=== PATIENT | female | born 1975 | race Caucasian/White ===

== ENCOUNTER 2016-04-29 21:25 | Emergency (ER) | payer OTHER ==
[2016-04-29 21:33] VITALS: BP 122/80; PULSE 102; TEMP 98.7; BMI 33.3
[2016-04-29 22:44] LABS: BASOPHIL 0.4 % (0-2.0); MCH 29.6 pg (25.7-33.7); MCHC 32.9 g/dl (32.0-36.0); MEAN PLT VOLUME 8.6 fl (7.5-11.1); NEUTROPHILS 78.1 % (42.8-82.8); PLATELET COUNT 269 K/MM3 (134-434); RDW 13.3 % (11.6-15.6); WHITE BLOOD COUNT 8.2 K/mm3 (4.0-10.0)
[2016-04-29 23:15] LABS: ALBUMIN 3.3 g/dl (3.4-5.0); ALK PHOS 79 U/L (45-117); ANION GAP 8 (8-16); BILIRUBIN,TOTAL 0.6 mg/dL (0.2-1.0); CALCIUM 8.1 mg/dL (8.5-10.1); CO2 25 mmol/L (21-32); CREATININE 0.6 mg/dL (0.55-1.02); GLUCOSE,RANDOM 111 mg/dL (74-106); SGOT/AST 11 U/L (15-37); SGPT/ALT 17 U/L (12-78); TOT PROT 7.1 g/dl (6.4-8.2)
[2016-04-30] MEDS ORDERED: SODIUM CHLORIDE 1,000 ML IV STA (00:30)
[2016-04-30] MEDS ORDERED: ONDANSETRON 4 MG/2 ML VIAL IVPUSH ONE (00:31)
[2016-04-30] MEDS ORDERED: ONDANSETRON 4 MG/2 ML VIAL ONE (00:35)
--- NOTE | 2016-04-30 00:41 | PDOC ---
History of Present Illness - History of Present Illness Initial Comments: 04/30/16 00:44 Patient is a 40 year old female with no significant medical hx who is presenting to the ED with one day of abdominal cramping, nausea, and chills. Patient is on oral contraceptives which give her her menses every 90 days; she began her cycle three days ago with some mild abdominal cramping. Today she has had extreme waves of nausea with worsening abdominal cramping, body aches and shaking chills. The patient has not vomited or had any episodes of diarrhea. Denies past abdominal surgeries, past medical hx, or chronic medications. Allergies: zithromax <Keke Garcia - Last Filed: 04/30/16 00:44> <Alivia Negro - Last Filed: 04/30/16 01:58> - General Chief Complaint: Pain, Acute Stated Complaint: ABD PAIN/FEVER Time Seen by Provider: 04/29/16 21:42 Past History <Keke Garcia - Last Filed: 04/30/16 00:44> - Past Medical History Asthma: Yes - Psycho/Social/Smoking Cessation Hx Suicidal Ideation: No Smoking History: Never smoked <Alivia Negro - Last Filed: 04/30/16 01:58> - Past Medical History Allergies/Adverse Reactions: Allergies Allergy/AdvReac Type Severity Reaction Status Date / Time azithromycin Allergy Verified 04/29/16 21:29 Home Medications: Ambulatory Orders Albuterol Sulfate Inhaler - [Ventolin Hfa Inhaler -] 1 - 2 inh PO Q4H PRN Review of Systems - Review of Systems Comments:: 04/30/16 00:49 CONSTITUTIONAL: Present: chills, body aches Absent: fever, diaphoresis, generalized weakness, malaise, loss of appetite HEENT: Absent: rhinorrhea, nasal congestion, throat pain, throat swelling, difficulty swallowing, mouth swelling, ear pain, eye pain, visual changes CARDIOVASCULAR: Absent: chest pain, syncope, palpitations, irregular heart rate, lightheadedness , peripheral edema RESPIRATORY: Absent: cough, shortness of breath, dyspnea with exertion, orthopnea, wheezing, stridor, hemoptysis GASTROINTESTINAL: Present: nausea, abdominal cramping Absent: abdominal distension, vomiting, diarrhea, constipation, melena, hematochezia GENITOURINARY: Absent: dysuria, frequency, urgency, hesitancy, hematuria, flank pain, genital pain MUSCULOSKELETAL: Absent: myalgia, arthralgia, joint swelling SKIN: Absent: rash, itching, pallor HEMATOLOGIC/IMMUNOLOGIC: Absent: easy bleeding, easy bruising, lymphadenopathy, frequent infections ENDOCRINE: Absent: unexplained weight gain, unexplained weight loss, heat intolerance, cold intolerance NEUROLOGIC: Absent: headache, focal weakness or paresthesia, dizziness, unsteady gait, seizure, mental status changes, bladder or bowel incontinence. PSYCHIATRIC: Absent: anxiety, depression, suicidal or homicidal ideation, hallucinations <Keke Garcia - Last Filed: 04/30/16 00:44> *Physical Exam - Vital Signs Last Vital Signs Temp Pulse Resp BP Pulse Ox 98.7 F 102 H 18 122/80 98 04/29/16 21:31 04/29/16 21:31 04/29/16 21:31 04/29/16 21:31 04/29/16 21:31 - Physical Exam Comments: 04/30/16 00:51 GENERAL: Well developed, well nourished. Awake and alert. No acute distress. HEENT: Normocephalic, atraumatic. PERRLA, EOMI. No conjunctival pallor. Sclera are non- icteric. Dry mucous membranes. Oropharynx is clear. NECK: Supple. Full ROM. No JVD. Carotid pulses 2+ and symmetric, without bruits. No thyromegaly. No lymphadenopathy. CARDIOVASCULAR: Regular rate and rhythm. No murmurs, rubs, or gallops. Distal pulses are 2+ and symmetric. PULMONARY: No evidence of respiratory distress. Lungs clear to auscultation bilaterally. No wheezing, rales or rhonchi. ABDOMINAL: Soft. Non-tender. Non-distended. No rebound or guarding. No organomegaly. Normoactive bowel sounds. MUSCULOSKELETAL: Normal range of motion at all joints. No bony deformities or tenderness. No CVA tenderness. EXTREMITIES: No cyanosis. No clubbing. No edema. No calf tenderness. SKIN: Warm and dry. Normal capillary refill. No rashes. No jaundice. NEUROLOGICAL: Alert, awake, appropriate. Cranial nerves 2-12 intact. Normal speech. Gait is normal without ataxia. PSYCHIATRIC: Cooperative. Good eye contact. Appropriate mood and affect. <Keke Garcia - Last Filed: 04/30/16 00:44> - Vital Signs Last Vital Signs Temp Pulse Resp BP Pulse Ox 98.7 F 102 H 18 122/80 98 04/29/16 21:31 04/29/16 21:31 04/29/16 21:31 04/29/16 21:31 04/29/16 21:31 <Alivia Negro - Last Filed: 04/30/16 01:58> ED Treatment Course - LABORATORY CBC & Chemistry Diagram: 04/29/16 22:30 04/29/16 22:30 - ADDITIONAL ORDERS Additional order review: Laboratory Results 04/29/16 04/29/16 04/29/16 22:30 22:30 22:30 Sodium 136 Potassium 3.9 Chloride 103 Carbon Dioxide 25 Anion Gap 8 BUN 12 Creatinine 0.6 Creat Clearance w eGFR > 60 Random Glucose 111 H Calcium 8.1 L Total Bilirubin 0.6 AST 11 L ALT 17 Alkaline Phosphatase 79 Total Protein 7.1 Albumin 3.3 L Serum , Qual Negative Blood Type A POSITIVE Antibody Screen Negative 04/29/16 22:30 RBC 4.57 MCV 90.0 MCHC 32.9 RDW 13.3 MPV 8.6 Neutrophils % 78.1 Lymphocytes % 16.0 Monocytes % 3.5 L Eosinophils % 2.0 Basophils % 0.4 <Keke Garcia - Last Filed: 04/30/16 00:44> - LABORATORY CBC & Chemistry Diagram: 04/29/16 22:30 04/29/16 22:30 - ADDITIONAL ORDERS Additional order review: Laboratory Results 04/29/16 04/29/16 04/29/16 22:30 22:30 22:30 Sodium 136 Potassium 3.9 Chloride 103 Carbon Dioxide 25 Anion Gap 8 BUN 12 Creatinine 0.6 Creat Clearance w eGFR > 60 Random Glucose 111 H Calcium 8.1 L Total Bilirubin 0.6 AST 11 L ALT 17 Alkaline Phosphatase 79 Total Protein 7.1 Albumin 3.3 L Serum , Qual Negative Blood Type A POSITIVE Antibody Screen Negative 04/29/16 22:30 RBC 4.57 MCV 90.0 MCHC 32.9 RDW 13.3 MPV 8.6 Neutrophils % 78.1 Lymphocytes % 16.0 Monocytes % 3.5 L Eosinophils % 2.0 Basophils % 0.4 <Alivia Negro - Last Filed: 04/30/16 01:58> *DC/Admit/Observation/Transfer - Attestations Scribe Attestion: 04/30/16 00:52 Documentation prepared by Keke Garcia, acting as medical billing supervisor for Alivia Negro MD. <Keke Garcia - Last Filed: 04/30/16 00:44> <Alivia Negro - Last Filed: 04/30/16 01:58> Diagnosis at time of Disposition: Body aches, Chills Nausea & vomiting Qualifiers: Vomiting type: unspecified Vomiting Intractability: non-intractable Qualified Code(s): R11.2 - Nausea with vomiting, unspecified - Discharge Dispostion Disposition: HOME Condition at time of disposition: Stable - Patient Instructions Printed Discharge Instructions: DI for Viral Syndrome, DI for Nausea -- Adult Additional Instructions: -please take zofran for your nausea. Please rock picker your prescription at your pharmacy -try to stay hydrated and drink water -please return in the next 2 days if you develop abdominal tenderness/pain or persistent vomiting - Post Discharge Activity Work/School Note: Back to Work
== END 2016-04-30 02:05 | disposition home or self-care (01) ==
LOC: JER 21:25
PROC: 3E033GC Introduction of Other Therapeutic Substance into Peripheral Vein, Percutaneous Approach (ICD-10-PCS; principal; 2016-04-29)
DX: B34.9 Viral infection, unspecified (principal)
CPT/HCPCS: 36415; 80053; 84703; 85025; 86850; 86900; 86901; 99282-25

== ENCOUNTER 2019-07-23 10:27 | Emergency (ER) | payer BC, OTHER ==
[2019-07-23 10:33] VITALS: BMI 35.4
[2019-07-23] MEDS ORDERED: ACETAMINOPHEN 1000 MG/100 ML VIAL (NON FORMULARY) IVPB ONE (10:42)
[2019-07-23] MEDS ORDERED: SODIUM CHLORIDE 1,000 ML IV STA (10:42)
[2019-07-23] MEDS ORDERED: ACETAMINOPHEN INJECTION 100 ML IVPB ONE (11:03)
[2019-07-23 11:13] LABS: BASO % 0.7 % (0-2.0); EOS % 1.6 % (0-4.5); HEMATOCRIT 39.1 % (32.4-45.2); HEMOGLOBIN 13.3 GM/dL (10.7-15.3); LYMPH % 29.8 % (8-40); MCH 30.7 pg (25.7-33.7); MEAN CELL VOLUME 90.3 fl (80-96); MEAN PLT VOLUME 8.7 fl (7.5-11.1); NEUT % 62.9 % (42.8-82.8); PLATELET COUNT 313 K/MM3 (134-434); RBC 4.33 M/mm3 (3.60-5.2); RDW 13.7 % (11.6-15.6); WHITE BLOOD COUNT 7.4 K/mm3 (4.0-10.0)
--- NOTE | 2019-07-23 11:16 | PDOC ---
History of Present Illness - General Chief Complaint: Pain, Acute Stated Complaint: LOWER BACK PAIN/BLOOD IN URINE Time Seen by Provider: 07/23/19 10:40 - History of Present Illness Initial Comments: 07/23/19 11:11 43 yo F PMH asthma, presenting with L flank pain. Notes that she had mild intermittent back pain for about a week, but has become 10/10 in the past day. Went to urgent care this morning, where they checked a urine and told her that she had blood and to go the ER. Never had similar symptoms in the past. Endorses chills and L flank pain, without N/V or abdominal pain. Further denies CP, SOB, HARRIS, urinary changes. Past History - Past Medical History Allergies/Adverse Reactions: Allergies Allergy/AdvReac Type Severity Reaction Status Date / Time azithromycin Allergy Verified 07/23/19 10:33 Home Medications: Ambulatory Orders Albuterol Sulfate Inhaler - [Ventolin Hfa Inhaler -] 1 - 2 inh PO Q4H PRN 04/29/16 Asthma: Yes COPD: No - Psycho Social/Smoking Cessation Hx Smoking History: Never smoked Hx Alcohol Use: No Drug/Substance Use Hx: No Review of Systems - Review of Systems Comments:: 07/23/19 11:17 GENERAL/CONSTITUTIONAL: denies fever, chills, diaphoresis, generalized weakness, malaise, loss of appetite, weight change HEAD, EYES, EARS, NOSE AND THROAT: denies rhinorrhea, nasal congestion, throat pain, throat swelling, difficulty swallowing, mouth swelling, ear pain, eye pain, visual changes NEUROLOGIC: denies headache, focal weakness or paresthesias, dizziness, unsteady gait, seizure, mental status changes, bladder or bowel incontinence CARDIOVASCULAR: denies chest pain, syncope, palpitations, irregular heart rate, lightheadedness, peripheral edema RESPIRATORY: denies cough, shortness of breath, dyspnea with exertion, orthopnea, wheezing, stridor, hemoptysis GASTROINTESTINAL: endorses L flank pain. Denies abdominal pain, abdominal distension, nausea, vomiting, diarrhea, constipation, melena, hematochezia GENITOURINARY: denies dysuria, frequency, urgency, hesitancy, hematuria, flank pain, genital pain MUSCULOSKELETAL: denies myalgia, arthralgia, joint swelling, back pain, neck pain SKIN: denies rash, itching, pallor HEMATOLOGIC/IMMUNOLOGIC: denies easy bleeding, easy bruising, lymphadenopathy, frequent infections ENDOCRINE: denies unexplained weight gain, unexplained weight loss, heat intolerance, cold intolerance PSYCHIATRIC: denies anxiety, depression, suicidal or homicidal ideation, hallucinations *Physical Exam - Vital Signs Last Vital Signs Temp Pulse Resp BP Pulse Ox 98.1 F 97 H 16 145/94 98 07/23/19 10:29 07/23/19 10:29 07/23/19 10:29 07/23/19 10:07/23/19 10:29 - Physical Exam 07/23/19 11:13 Gen: well-developed, well-nourished, appears uncomfortable Neuro: AAOX4, CN II-XII grossly intact HEENT: atraumatic, normocephalic Neck: trachea midline, supple CV: regular rate, regular rhythm, no murmurs, rubs, or gallops Pulm: CTA b/l, no wheezing Abd: soft, non-distended, L lumbar paraspinal tenderness MSK: full ROM, intact pulses Extr: no edema, no deformities Skin: warm, dry ED Treatment Course - LABORATORY CBC & Chemistry Diagram: 07/23/19 10:52 07/23/19 10:52 Medical Decision Making - Medical Decision Making 07/23/19 11:21 R/o kidney stone. - UA/UC/urine preg - CBC, CMP - CT abd/pelvis non-con 07/23/19 12:29 CT abd/pelvis: There is no evidence of hydroureteronephrosis, renal or ureteral stone, bilaterally. Partially distended urinary bladder without wall thickening or intraluminal layering stones. Partially distended gallbladder without gross intraluminal stones. A few subcentimeter mesenteric lymph nodes in the right lower quadrant as well as questionable tiny mesenteric lymph nodes in the mid abdomen which are nonspecific. Cannot rule out mesenteric adenitis. Normal- appearing appendix without evidence of acute appendicitis. Will reassess patient, possibly passed stone. 07/23/19 12:37 Patient continues to have pain, now states that it improves when she rotates her back. Possible musculoskeletal etiology. Will give lidocaine patch, Robaxin, reassess. 07/23/19 14:20 Patient reports that pain is still present, but understands that her scan did not show any acute findings. Will dc for further outpatient management, referral to orthopedics. Discharge - Discharge Information Problems reviewed: Yes Clinical Impression/Diagnosis: Left low back pain Condition: Stable Disposition: HOME - Admission No - Follow up/Referral Referrals: Alex Pierre [Primary Care Provider] - Bertin Perales DO [Staff Physician] - - Patient Discharge Instructions Patient Printed Discharge Instructions: DI for Low Back Pain Additional Instructions: You were seen with left sided back pain. Your labs and imaging did not show any acute abnormalities. Please alternate taking ibuprofen and acetaminophen as needed for pain. Follow up with your primary care doctor within one week. We have given you a referral to orthopedic surgery; please call to make an appointment if you continue to have symptoms. Return to the ER if you develop new or worsening symptoms. - Post Discharge Activity
[2019-07-23 11:41] LABS: ALBUMIN 3.4 g/dl (3.4-5.0); BILIRUBIN,TOTAL 0.3 mg/dL (0.2-1); BLOOD UREA NITROGEN 15.2 mg/dL (7-18); CALCIUM 9.2 mg/dL (8.5-10.1); CREATININE 0.6 mg/dL (0.55-1.3); POTASSIUM 4.5 mmol/L (3.5-5.1); TOT PROT 7.6 g/dl (6.4-8.2)
[2019-07-23 11:43] LABS: EPI CELLS 3 /uL (0-25.1); HCG,QUALITATIVE URINE Negative; HYALINE CASTS 0 /uL (0-3.1); PH,URINE 6.5 (5.0-8.0); URINE APPEARANCE CLEAR; URINE BACTERIA 195 /uL (0-1359); URINE BILIRUBIN NEGATIVE (NEGATIVE); URINE COLOR YELLOW; URINE GLUCOSE (UA) NEGATIVE (NEGATIVE); URINE KETONE NEGATIVE (NEGATIVE); URINE LEUK ESTERASE NEGATIVE (NEGATIVE); URINE NITRITE NEGATIVE (NEGATIVE); URINE PROTEIN NEGATIVE (NEGATIVE); URINE RBC 35 /uL (0-23.9); URINE UROBILINOGEN 0.2 mg/dL (0.2-1.0); URINE WBC 6 /uL (0-25.8)
[2019-07-23] MEDS ORDERED: KETOROLAC TROMETHAMINE 30 MG/1 ML VIAL IVPUSH ONE (11:47)
[2019-07-23] MEDS ORDERED: KETOROLAC TROMETHAMINE 30 MG/1 ML VIAL ONE (11:52)
--- NOTE | 2019-07-23 11:58 | PDOC ---
Documentation entered by Stephania Hurst SCRIBE, acting as scribe for Radha Cerda DO. Radha Cerda DO: This documentation has been prepared by the Aris parson Brenda, SCRIBE, under my direction and personally reviewed by me in its entirety. I confirm that the documentation accurately reflects all work, treatment, procedures, and medical decision making performed by me. Attending Attestation - Resident Resident Name: RecinosFadichristopher - ED Attending Attestation I have performed the following: I have examined & evaluated the patient, The case was reviewed & discussed with the resident, I agree w/resident's findings & plan, Exceptions are as noted - HPI HPI: 07/23/19 10:49 The patient is a year old female, with a significant PMH of who presents to the emergency department sent from urgent care for evaluation of left lower back pain that is reproducible an dhematuria. Patient rpeorts being 2 weeks away from menstrual cycle. The patient denies any similar episodes in the past. Denies back trauma. Denies chest pain, shortness of breath, headache and dizziness. Denies fever, chills, nausea, vomiting, diarrhea and constipation. Denies dysuria, frequency, urgency. Allergies: Azithromycin Social history: No reported hx of tobacco use, alcohol use or illicit drug use. - Physicial Exam PE: 07/23/19 10:49 GENERAL: Awake, alert, and fully oriented, in no acute distress HEAD: No signs of trauma EYES: EOMI, sclera anicteric, conjunctiva clear ENT:Moist mucosa NECK: Normal ROM, supple, no lymphadenopathy, JVD, or masses LUNGS: Breath sounds equal, clear to auscultation bilaterally. No wheezes, and no crackles HEART: Regular rate and rhythm, normal S1 and S2, no murmurs, rubs or gallops ABDOMEN: Soft, nontender, normoactive bowel sounds. No guarding, no rebound. No masses BACK: (+) Left lower back tenderness. NO CVA. EXTREMITIES: Normal range of motion, no edema. No clubbing or cyanosis. No cords, erythema, or tenderness NEUROLOGICAL: Cranial nerves II through XII grossly intact. Normal speech, normal gait SKIN: Warm, Dry, normal turgor, no rashes or lesions noted. 07/23/19 11:58 - Medical Decision Making 07/23/19 11:56 a/p: 43yo female with a week of L low back pain, seen at urgent care, performed UA which showed blood, sent to the ER for further eval -pt denies trauma -pt uncomfortable, cannot sit or stand comofortably, colicky pain -feels chills, but no fevers -denies dysuria -no vaginal complaints -no n/v/d -no cough, sob -no prior hx of kidney stones -concern for renal colic given flank pain, back pain and hematuria -menstrual cycle is due in 2 weeks -no abd ttp -will send labs, ct abd/pelvis - stone study -will monitor and reassess -toradol for pain 07/23/19 12:28 mesenteric adenitis, no stones no acute findings 07/23/19 13:22 suspect msk cause vs passed stone given blood in urine will give robaxin and lidoderm patch 07/23/19 13:24 degenerative changes L5-s1 07/23/19 14:19 pt states improved, requesting to go home has been ambulatory in the ER pt stable for dc to home Discharge - Discharge Information Problems reviewed: Yes Clinical Impression/Diagnosis: Left low back pain Condition: Stable Disposition: HOME - Admission No - Follow up/Referral Referrals: Bertin Perales DO [Staff Physician] - Alex Pierre [Primary Care Provider] - - Patient Discharge Instructions Patient Printed Discharge Instructions: DI for Low Back Pain Additional Instructions: You were seen with left sided back pain. Your labs and imaging did not show any acute abnormalities. Please alternate taking ibuprofen and acetaminophen as needed for pain. Follow up with your primary care doctor within one week. We have given you a referral to orthopedic surgery; please call to make an appointment if you continue to have symptoms. Return to the ER if you develop new or worsening symptoms. - Post Discharge Activity
[2019-07-23] MEDS ORDERED: LIDOCAINE 5% TOPICAL PATCH TP ONE (12:38)
[2019-07-23] MEDS ORDERED: METHOCARBAMOL 500 MG TABLET PO ONE (13:13)
[2019-07-23] MEDS ORDERED: METHOCARBAMOL 500 MG TABLET ONE (13:25)
[2019-07-23] MEDS ORDERED: LIDOCAINE 5% TOPICAL PATCH ONE (13:46)
[2019-07-23 14:37] VITALS: BP 126/78; PULSE 88; TEMP 98.5
[2019-07-23] MEDS ORDERED: LIDOCAINE PATCH REMOVAL MC SCH (22:00)
== END 2019-07-23 14:38 | disposition home or self-care (01) ==
LOC: JER 10:27
DX: M54.5 Low back pain (principal)
CPT/HCPCS: 36415; 74176-TC; 80053; 81003; 84703; 85025; 87086; 99285-25; J0131; J7030

== ENCOUNTER 2019-11-10 19:30 | Emergency (ER) | payer BC, OTHER ==
--- NOTE | 2019-11-10 19:35 | PDOC ---
Rapid Medical Evaluation Time Seen by Provider: 11/10/19 19:33 Medical Evaluation: Allergies Allergy/AdvReac Type Severity Reaction Status Date / Time azithromycin Allergy Verified 07/23/19 10:33 11/10/19 19:33 44 year old female pmhx of asthma with 5 days of diarrhea without blood or vomiting, now complaining of dizziness. Denies fever, chills, SOB, vomiting PE: Mildly ttp over lower abdomen Plan Labs Fluids Pt to precede to Ed for further eval and treatment at the discretion of ED provider.
[2019-11-10] MEDS ORDERED: SODIUM CHLORIDE 0.9% 500 ML INFUS.BAG IV ONE (19:36)
[2019-11-10 19:37] VITALS: BP 157/82; PULSE 93; TEMP 98.6; BMI 35.0
--- NOTE | 2019-11-10 19:59 | PDOC ---
History of Present Illness - General Chief Complaint: Diarrhea Stated Complaint: SENT BY DOCTOR Time Seen by Provider: 11/10/19 19:33 - History of Present Illness Initial Comments: 11/10/19 19:56 44 y/o F w/PMH of asthma presents for evaluation of diarrhea and nausea no vomiting x4 days Past History - Medical History Allergies/Adverse Reactions: Allergies Allergy/AdvReac Type Severity Reaction Status Date / Time azithromycin Allergy Verified 07/23/19 10:33 Home Medications: Ambulatory Orders NK [No Known Home Medication] 11/10/19 Asthma: Yes COPD: No - Psycho-Social/Smoking History Smoking History: Never smoked - Substance Abuse Hx (Audit-C & DAST Scrn) How often the patient has a drink containing alcohol: Never Score: In Men: 4 or > Positive; In Women: 3 or > Positive: 0 Screen Result (Pos requires Nsg. Audit-10AR): Negative Review of Systems - Review of Systems Constitutional: Yes: Chills, Malaise, Night Sweats. No: Fever ABD/GI: Yes: Diarrhea, Nausea. No: Vomiting : No: Burning, Discharge, Frequency, Flank Pain, Urgency *Physical Exam - Vital Signs Last Vital Signs Temp Pulse Resp BP Pulse Ox 98.6 F 93 H 20 157/82 100 11/10/19 19:33 11/10/19 19:33 11/10/19 19:33 11/10/19 19:33 11/10/19 19:33 - Physical Exam General Appearance: Yes: Nourished, Appropriately Dressed. No: Apparent Distress HEENT: positive: Symmetrical Neck: positive: Supple Respiratory/Chest: positive: Lungs Clear, Normal Breath Sounds. negative: Respiratory Distress, Accessory Muscle Use, Labored Respiration, Decreased B reath Sounds, Paradoxal Breathing, Crackles, Rales, Rhonchi, Stridor, Wheezing Cardiovascular: positive: Regular Rhythm, Regular Rate Gastrointestinal/Abdominal: positive: Tender, Soft, Tenderness, Other (RLQT ). negative: Guarding, Rebound Musculoskeletal: positive: Normal Inspection Extremity: positive: Normal Inspection Integumentary: positive: Normal Color, Dry, Warm Neurologic: positive: middleware consultant II-XII NML intact, Fully Oriented, Alert, Normal Mood/Affect ED Treatment Course - LABORATORY CBC & Chemistry Diagram: 11/10/19 20:20 11/10/19 20:20 Medical Decision Making - Medical Decision Making 11/10/19 22:32 Patient signed out to main emergency room at this time Discharge - Discharge Information Problems reviewed: Yes Clinical Impression/Diagnosis: Abdominal pain - Follow up/Referral Referrals: Alex Burnette MD [Primary Care Provider] - - Patient Discharge Instructions - Post Discharge Activity
[2019-11-10 20:40] LABS: BASO % 0.3 % (0-2.0); EOS % 1.2 % (0-4.5); HEMATOCRIT 39.1 % (32.4-45.2); HEMOGLOBIN 13.1 GM/dL (10.7-15.3); MCH 30.3 pg (25.7-33.7); MCHC 33.6 g/dl (32.0-36.0); MEAN CELL VOLUME 90.4 fl (80-96); MEAN PLT VOLUME 8.3 fl (7.5-11.1); MONO % 6.8 % (3.8-10.2); NEUT % 54.7 % (42.8-82.8); PLATELET COUNT 292 K/MM3 (134-434); RBC 4.32 M/mm3 (3.60-5.2); RDW 13.6 % (11.6-15.6)
[2019-11-10 20:53] LABS: ALBUMIN 3.6 g/dl (3.4-5.0); ALK PHOS 78 U/L (45-117); ANION GAP 9 MMOL/L (8-16); BILIRUBIN,TOTAL 0.4 mg/dL (0.2-1); BLOOD UREA NITROGEN 11.8 mg/dL (7-18); CALCIUM 9.1 mg/dL (8.5-10.1); CHLORIDE 104 mmol/L (98-107); CO2 27 mmol/L (21-32); CREATININE 0.6 mg/dL (0.55-1.3); GLUCOSE,RANDOM 103 mg/dL (74-106); LIPASE 209 U/L (73-393); POTASSIUM 4.2 mmol/L (3.5-5.1); SGOT/AST 13 U/L (15-37); SGPT/ALT 21 U/L (13-61); SODIUM 140 mmol/L (136-145); TOT PROT 7.5 g/dl (6.4-8.2)
--- NOTE | 2019-11-10 22:51 | PDOC ---
*Physical Exam - Vital Signs Last Vital Signs Temp Pulse Resp BP Pulse Ox 98.6 F 93 H 20 157/82 100 11/10/19 19:33 11/10/19 19:33 11/10/19 19:33 11/10/19 19:33 11/10/19 19:33 - Physical Exam 11/10/19 22:50 Gen: AAOx 3, no acute distress, comfortable, no signs of respiratory distress CV: RRR no murmurs, gallops, or rubs. CHEST: CTA b/l no wheezing, rales or rhonchi ABD: +BS/ND. mildly TTP over lower abdomen; soft, no rebound, no guarding EXTREMITY: no cyanosis or erythema. 2+ dorsalis pedis, posterior tibial, and radial pulse. No pedal edema; no calf swelling or tenderness SKIN: no rash, warm and dry, no diaphoresis HEME: no purpura or ecchymosis NEURO: normal speech, CN II-XII intact, sensation intact, normal gait, no cerebellar deficits MS: 5/5 strength in all extremities, FROM intact in all extremities. ED Treatment Course - LABORATORY CBC & Chemistry Diagram: 11/10/19 20:20 11/10/19 20:20 - ADDITIONAL ORDERS Additional order review: Laboratory Results 11/10/19 11/10/19 20:20 20:20 Sodium 140 Potassium 4.2 Chloride 104 Carbon Dioxide 27 Anion Gap 9 BUN 11.8 Creatinine 0.6 Est GFR (CKD-EPI)AfAm 129.39 Est GFR (CKD-EPI)NonAf 111.64 Random Glucose 103 Calcium 9.1 Total Bilirubin 0.4 AST 13 L ALT 21 Alkaline Phosphatase 78 Troponin I < 0.02 Total Protein 7.5 Albumin 3.6 Lipase 209 Serum , Qual Negative 11/10/19 20:20 RBC 4.32 MCV 90.4 MCHC 33.6 RDW 13.6 MPV 8.3 Neutrophils % 54.7 Lymphocytes % 37.0 D Monocytes % 6.8 Eosinophils % 1.2 Basophils % 0.3 - Medications Given in the ED: ED Medications Discontinued Medications Generic Name Dose Route Start Last Admin Trade Name Freq PRN Reason Stop Dose Admin Sodium Chloride 2,000 ml 11/10/19 19:36 11/10/19 20:19 Normal Saline - IV 11/10/19 19:37 2,000 ml ONCE ONE Administration Medical Decision Making - Medical Decision Making 11/10/19 22:50 Pt signed out to me pending CT results, labs all WNL Pt appears well Will reassess based on results. UA suspicious for UTI vs stone 11/11/19 01:34 CT from virtual radiology shows no acute pathology including no obstructive uropathy, pt appears well is tolerating PO and is safe and stable for discharge with close PCP follow up. Even if patient does have stone not visualized on CT abdomen and pelvis it is non obstructive. Will treat for UTI Pt instructed on proper hydration and use of OTC anti-diarrheal medicine ABX sent to pts pharmacy Pt to follow up with PCP w/o fail Supportive care instructions explained and given to pt. Reasons to return emergently to ER explained and given. Importance of follow up with PMD and other specialists as indicated stressed to pt. Pt verbalized understanding of instructions. Pt to follow up with PMD in 2 days. 11/11/19 01:35 Discharge - Discharge Information Problems reviewed: Yes Clinical Impression/Diagnosis: Abdominal pain Qualifiers: Abdominal location: lower abdomen, unspecified Qualified Code(s): R10.30 - Lower abdominal pain, unspecified UTI (urinary tract infection) Qualifiers: Urinary tract infection type: site unspecified Hematuria presence: with hematur ia Qualified Code(s): N39.0 - Urinary tract infection, site not specified; R31.9 - Hematuria, unspecified Condition: Stable Disposition: HOME - Admission No - Additional Discharge Information Prescriptions: Nitrofurantoin Monohyd/M-Cryst [Macrobid -] 100 mg PO BID #10 capsule - Follow up/Referral Referrals: Alex Burnette MD [Primary Care Provider] - - Patient Discharge Instructions Patient Printed Discharge Instructions: DI for Urinary Tract Infection (UTI), DI for Diarrhea and Traveler's Diarrhea -- Adult Additional Instructions: YOU MUST FOLLOW UP WITH YOUR PCP - Post Discharge Activity Work/Back to School Note: Back to Work
[2019-11-10 23:29] LABS: EPI CELLS 11 /uL (0-25.1); HYALINE CASTS 1 /uL (0-3.1); URINE APPEARANCE CLEAR; URINE BACTERIA 1117 /uL (0-1359); URINE BILIRUBIN NEGATIVE (NEGATIVE); URINE COLOR YELLOW; URINE GLUCOSE (UA) NEGATIVE (NEGATIVE); URINE KETONE NEGATIVE (NEGATIVE); URINE LEUK ESTERASE TRACE (NEGATIVE); URINE NITRITE NEGATIVE (NEGATIVE); URINE PROTEIN NEGATIVE (NEGATIVE); URINE RBC 7 /uL (0-23.9); URINE UROBILINOGEN 0.2 mg/dL (0.2-1.0); URINE WBC 25 /uL (0-25.8)
--- NOTE | 2019-11-11 11:52 | EKG ---
Test Reason : Blood Pressure : / mmHG Vent. Rate : 078 BPM Atrial Rate : 078 BPM P-R Int : 162 ms QRS Dur : 084 ms QT Int : 416 ms P-R-T Axes : 044 005 012 degrees QTc Int : 474 ms NORMAL SINUS RHYTHM MINIMAL VOLTAGE CRITERIA FOR LVH, MAY BE NORMAL VARIANT BORDERLINE ECG NO PREVIOUS ECGS AVAILABLE Confirmed by YOGI FLETCHER MD ([id number]) on 11/11/2019 11:52:34 AM Referred By: Confirmed By:YOGI FLETCHER MD
== END 2019-11-11 01:46 | disposition home or self-care (01) ==
LOC: JER 19:30
DX: R10.30 Lower abdominal pain, unspecified (principal)
CPT/HCPCS: 36415; 74177-TC; 80053; 81003; 83690; 84484; 84703; 85025; 87086; 93005; 93010; 99285-25